=== PATIENT | female | born 1995 | race Caucasian/White ===

== ENCOUNTER 2018-11-19 22:17 | Emergency (ER) | payer MEDICAID ==
[~2018-11-19] VITALS: Ht 152.4 cm; Wt 59.0 kg
[2018-11-19 22:29] VITALS: BP 108/78
== END 2018-11-19 23:14 | disposition home or self-care (01) ==
LOC: ED 22:48
DX: R06.00 Dyspnea, unspecified (principal)
CPT/HCPCS: 99283

== ENCOUNTER 2019-10-13 17:41 | Emergency (ER) | payer OTHER ==
[~2019-10-13] VITALS: Ht 152.4 cm; Wt 55.0 kg
--- NOTE | 2019-10-13 18:02 | NUR ---
ASSUMED CARE OF PATIENT. PATIENT REPORTS PAINFUL URINATION. NO ACUTE DISTRESS NOTED. CALL LIGHT IN PLACE. WILL CONTINUE TO MONITOR.
--- NOTE | 2019-10-13 18:06 | NUR ---
PT REFUSES TO PUT GOWN ON.
[2019-10-13 19:08] LABS: CULTURE INDICATED? YES; MICROSCOPIC INDICATED
[2019-10-13 19:10] LABS: HCG UR SG > 1.030 (1.003-1.030)
--- NOTE | 2019-10-13 19:25 | NUR ---
PT VISITING WITH FRIEND IN ROOM. NO ACUTE DISTRESS NOTED. WILL CONTINUE TO MONITOR.
[2019-10-13] MEDS ORDERED: CEFTRIAXONE 1,000 MG IM ONE (19:30)
[2019-10-13] MEDS ORDERED: CEFTRIAXONE 1,000 MG ONE (19:41)
[2019-10-13 20:15] VITALS: BP 117/79
== END 2019-10-13 20:17 | disposition home or self-care (01) ==
LOC: ED 18:54
DX: N30.01 Acute cystitis with hematuria (principal); J45.909 Unspecified asthma, uncomplicated
CPT/HCPCS: 81001; 81025; 87077; 87086; 87186; 96372; 99283; J0696; J7512

== ENCOUNTER 2020-02-21 15:29 | Emergency (ER) | payer SELFPAY ==
[~2020-02-21] VITALS: Ht 160 cm; Wt 54.0 kg
--- NOTE | 2020-02-21 15:38 | NUR ---
PT BIB [facility] VIA [facility] FROM [facility]. PT REPORTEDLY MADE SI COMMENTS IN FRONT OF LAW ENFORCEMENT AFTER BECOMING ACUTELY INTOXICATED ON "QUITE A BIT OF ALCOHOL". PT DENIES CURRENT THOUGHTS OF SI/HI. PT CHANGED INTO GOWN AND IS RESTING COMFORTABLTY IN [facility]. PT EDUCATED ON ER PROCESS AND VERBALIZES UNDERSTANDING. BELONGINGS SECURED IN 1 OF 1 BAG AND LOCKED IN SECURED LOCKER. PT ROOM HAS BEEN SECURED FOR PT AND STAFF SAFETY AT THIS TIME. PT COOPERATIVE WITH STAFF. PT PROVIDED UA/UDS UPON REQUEST. SITTER OUTSIDE OF ROOM AT THIS TIME FOR DIRECT OBSERVATION OF PT.
--- NOTE | 2020-02-21 16:20 | NUR ---
PT RESTING ON EDGE OF [facility] WITH SITTER OUTSIDE OF ROOM FOR DIRECT OBSERVATION OF PT.
[2020-02-21 16:52] LABS: AMPHETAMINE SCREEN, URINE Negative (Negative); BARBITURATE SCREEN, URINE Negative (Negative); BENZODIAZEPINE SCREEN, URINE Negative (Negative); CANNABINOID SCREEN, URINE Negative (Negative); COCAINE SCREEN, URINE Negative (Negative); METHADONE SCREEN, URINE Negative (Negative); OPIATE SCREEN, URINE Negative (Negative)
[2020-02-21 16:54] LABS: HCG UR SG 1.007 (1.003-1.030)
[2020-02-21 17:01] LABS: MICROSCOPIC INDICATED
[2020-02-21 17:12] LABS: BASOPHILS # (AUTO) 0.05 x10^3/uL (0-0.1); BASOPHILS % (AUTO) 1 % (0-1); EOSINOPHILS # (AUTO) 0.25 x10^3/uL (0-0.4); EOSINOPHILS % (AUTO) 3 % (1-7); LYMPHOCYTES # (AUTO) 3.05 x10^3/uL (1-3.4); LYMPHOCYTES % (AUTO) 34 % (22-44); MD NO; MEAN CORPUSCULAR HEMOGLOBIN 32.7 pg (27.0-34.8); MEAN CORPUSCULAR HGB CONC 33.8 g/dL (32.4-35.8); MEAN CORPUSCULAR VOLUME 96.6 fL (80-100); MEAN PLATELET VOLUME 8.3 fL (7.4-10.4); MONOCYTES # (AUTO) 0.23 x10^3/uL (0.2-0.8); MONOCYTES % (AUTO) 3 % (2-9); NEUTROPHILS # (AUTO) 5.54 x10^3/uL (1.8-6.8); NEUTROPHILS % (AUTO) 61 % (42-75); PLATELET COUNT 342 x10^3/uL (130-400); RED BLOOD COUNT 4.58 x10^6/uL (3.82-5.3); RED CELL DISTRIBUTION WIDTH 12.3 % (9.6-15.2)
[2020-02-21 17:23] LABS: ALBUMIN 3.6 g/dL (3.4-5.0); ANION GAP 11 mmol/L (5-15); CALCIUM 8.6 mg/dL (8.5-10.1); CHLORIDE 113 mmol/L (98-107); CREATININE 0.63 mg/dL (0.55-1.02)
[2020-02-21 17:27] LABS: SALICYLATE LEVEL < 1.7 mg/dL (2.8-20.0)
--- NOTE | 2020-02-21 17:28 | NUR ---
PT FATHER CALLED AND REQUESTING PT CALL WHEN SHE IS ABLE. TYRA ABBOTT @ [phone]
--- NOTE | 2020-02-21 18:46 | NUR ---
REPORT OF PT TO OMI CEDEÑO AT THIS TIME. ALL QUESTIONS ANSWERED.
--- NOTE | 2020-02-21 19:00 | NUR ---
Pt resting quietly and comfortably, waiting for ct results. Pt voices no complaints at this time.
--- NOTE | 2020-02-21 19:26 | NUR ---
report from richard alex. pt resting. pt wakes to verbal stimuli and then goes bcak to sleep. pt to be telepsyched when sober
--- NOTE | 2020-02-21 19:26 | NUR ---
Report given to Mary BRAGA.
--- NOTE | 2020-02-21 20:05 | NUR ---
PT RESTING IN ROOM AND REBREATHALYZED. PT STILL INTOXICATED. SITTER IN VIEW OF PT.
--- NOTE | 2020-02-21 21:15 | NUR ---
pt sleeping, even rise and fall of chest observed. sitter in view of pt.
--- NOTE | 2020-02-21 22:24 | NUR ---
PT SLEEPING. EVEN RISE AND FALL OF CHEST OBSERVED. SITTER IN VIEW OF PT
--- NOTE | 2020-02-21 23:48 | NUR ---
pt sleeping, even rise and fall of chest observed. sitter in view of pt.
--- NOTE | 2020-02-22 01:23 | NUR ---
pt sleeping. even rise and fall of chest observed. Abx ordered my pa. Pa ok with abx being given when pt wakes up. Sitter in view of pt.
[2020-02-22] MEDS ORDERED: CIPROFLOXACIN 500 MG TABLET ONE (02:23)
--- NOTE | 2020-02-22 02:28 | NUR ---
pt medicated with abx and given water. pt requesting a snack. pt given jair crackers. pt has no other needs. sitter in view of pt.
--- NOTE | 2020-02-22 04:06 | NUR ---
PT RE BREATHALYZED AND PT STILL NOT SOBER. PT RESTING WITH NO OTHER NEEDS. SITTER IN VIEW OF PT
--- NOTE | 2020-02-22 05:08 | NUR ---
REPORT TO BOZENA BRAGA
--- NOTE | 2020-02-22 05:21 | NUR ---
REPORT RECEIVED FROM OMI VICTOR. PT RESTING ON GURNEY, NO DISTRESS NOTED. SITTER OUTSIDE ROOM, ROOM REMAINS SECURE. AWAITING PT TO SOBER UP FOR PSYCH EVALUATION
--- NOTE | 2020-02-22 06:08 | NUR ---
PT'S REDD LEVEL NOW 0.08, TELEPSYCH PAGED.
--- NOTE | 2020-02-22 06:54 | NUR ---
REPORT GIVEN TO OMI HYMAN
[2020-02-22 08:07] VITALS: BP 108/67
--- NOTE | 2020-02-22 08:23 | NUR ---
meal provided, safety precautions in place.
--- NOTE | 2020-02-22 08:43 | NUR ---
Continue per telepsych consult/ Addendum: 02/22/20 at 1050 by [email or web address] Continue hold per telepsych consult.
[2020-02-22] MEDS ORDERED: CIPROFLOXACIN 500 MG TABLET PO SCH (09:00)
--- NOTE | 2020-02-22 12:13 | NUR ---
MEAL PROVIDED, SAFETY PRECAUTIONS IN PLACE.
--- NOTE | 2020-02-22 13:19 | NUR ---
PT RESTING IN BED, CALL LIGHT IN REACH.
--- NOTE | 2020-02-22 13:40 | NUR ---
BRANDI PEANUT FARMER AT BEDSIDE
--- NOTE | 2020-02-22 14:07 | NUR ---
PROVIDER BRANDI REMAINS AT THE BEDSIDE INTERVIEWING THE PT. NO CONCERNS NOTED AT THIS TIME.
== END 2020-02-22 14:43 | disposition home or self-care (01) ==
LOC: ED 17:51
DX: F32.9 Major depressive disorder, single episode, unspecified (principal); N30.00 Acute cystitis without hematuria; F10.229 Alcohol dependence with intoxication, unspecified; R45.851 Suicidal ideations; R45.1 Restlessness and agitation; J45.909 Unspecified asthma, uncomplicated; Y90.0 Blood alcohol level of less than 20 mg/100 ml
CPT/HCPCS: 36415; 80048; 80307; 81001; 81025; 82040; 85025; 87077; 87086; 87186; 99283